=== PATIENT | female | born 1965 | race American Indian/Alaskan Native ===

== ENCOUNTER 2018-02-03 14:18 | Emergency (ER) | payer OTHER ==
--- NOTE | 2018-02-03 16:23 | Emergency Department Report ---
Chief Complaint: Abdominal Pain Stated Complaint: ABDOMINAL PAIN/BLOOD IN URINE Time Seen by Provider: 02/03/18 16:18 - HPI History of Present Illness: 52-year-old female presents to the emergency department with complaint of suprapubic abdominal pain and hematuria that has been going on for the past 4 days. Currently she does not have any pain but the bloody urine is returned. At first it was associated with some increased frequency and urgency. She denies any fever, nausea, vomiting. No past medical history. No primary care physician. She has not taken anything for her symptoms. - ROS Review of Systems: Positive for suprapubic abdominal pain, hematuria, increased urinary frequency Negative for fever, nausea, vomiting, back pain - Exam Vital Signs: Vital Signs 02/03/18 14:37 Temperature 98.1 F Pulse Rate 84 Respiratory 18 Rate Blood Pressure 158/76 O2 Sat by Pulse 96 Oximetry Physical Exam: Patient is awake and alert in no acute distress. Heart and lung sounds normal to auscultation. No gait abnormalities. MSE screening note: Focused history and physical exam performed. Due to findings the following was ordered: She will have some labs and a urinalysis. She can remain on the fast track side. ED Disposition for MSE Condition: Stable Instructions: Abdominal Pain (ED) Referrals: PRIMARY CARE [Primary Care Provider] - 3-5 Days
[2018-02-03 16:39] LABS: Bacteria,Urine 3+ /HPF (Negative); Bilirubin,Urine NEG (Negative); Blood,Urine LG (Negative); Color,Urine Red (Yellow); Mucus,Urine FEW /HPF; Urobilinogen,Urine < 2.0 mg/dL (<2.0)
[2018-02-03 16:43] LABS: Basophils # (Auto) 0.1 K/mm3 (0.0-0.1); Basophils % (Auto) 0.9 % (0.0-1.8); Eosinophils # (Auto) 0.1 K/mm3 (0.0-0.4); Eosinophils % (Auto) 1.6 % (0.0-4.3); Hematocrit 37.7 % (30.3-42.9); Hemoglobin 12.4 gm/dl (10.1-14.3); Lymphocytes # (Auto) 1.8 K/mm3 (1.2-5.4); Lymphocytes % (Auto) 23.7 % (13.4-35.0); Mean Corpuscular HGB Conc 33 % (30-34); Mean Corpuscular Hemoglobin 28 pg (28-32); Mean Corpuscular Volume 84 fl (79-97); Monocytes # (Auto) 0.7 K/mm3 (0.0-0.8); Monocytes % (Auto) 9.5 % (0.0-7.3); Platelet Count 254 K/mm3 (140-440); Red Blood Count 4.48 M/mm3 (3.65-5.03); Red Cell Distribution Width 13.5 % (13.2-15.2)
[2018-02-03 16:44] LABS: RBC,Urine > 182.0 /HPF (0.0-6.0)
[2018-02-03 17:10] LABS: Alanine Aminotransferase 17 units/L (7-56); Albumin 4.5 g/dL (3.9-5); BUN/Creatinine Ratio 19; Blood Urea Nitrogen 13 mg/dL (7-17); Calcium 9.5 mg/dL (8.4-10.2); Hemolysis Index 30
[2018-02-03] MEDS ORDERED: MACROBID PO ONE (18:33)
--- NOTE | 2018-02-03 18:48 | Emergency Department Report ---
HPI - General Chief Complaint: Abdominal Pain Time Seen by Provider: 02/03/18 16:18 - HPI HPI: 52-year-old female presents to the emergency department with complaint of suprapubic abdominal pain and hematuria that has been going on for the past 4 days. Currently she does not have any pain but the bloody urine is returned. At first it was associated with some increased frequency and urgency. She denies any fever, nausea, vomiting. No past medical history. No primary care physician. She has not taken anything for her symptoms. ED Past Medical Hx - Surgical History Additional Surgical History: Had 2 C sections - Social History Smoking Status: Never Smoker Substance Use Type: None - Medications Home Medications: Home Medications Medication Instructions Recorded Confirmed Last Taken Type Nitrofurantoin [place]/M-Cryst 100 mg PO BID #14 capsule 02/03/18 Unknown Rx [Macrobid CAP] ED Review of Systems ROS: Stated complaint: ABDOMINAL PAIN/BLOOD IN URINE Other details as noted in HPI Comment: All other systems reviewed and negative Constitutional: denies: chills, fever Eyes: denies: eye pain, eye discharge, vision change ENT: denies: ear pain, throat pain Respiratory: denies: cough, shortness of breath, wheezing Cardiovascular: denies: chest pain, palpitations Gastrointestinal: abdominal pain (suprapubic). denies: vomiting Genitourinary: hematuria. denies: discharge Musculoskeletal: denies: back pain, joint swelling, arthralgia Skin: denies: rash, lesions Neurological: denies: headache, weakness, paresthesias Physical Exam - Physical Exam Vital Signs: Vital Signs 02/03/18 14:37 Temperature 98.1 F Pulse Rate 84 Respiratory 18 Rate Blood Pressure 158/76 O2 Sat by Pulse 96 Oximetry Physical Exam: GENERAL: The patient is well-developed well-nourished. HENT: Normocephalic. Atraumatic. Patient has moist mucous membranes. EYES: Extraocular motions are intact. NECK: Supple. Trachea is midline. CHEST/LUNGS: Clear to auscultation. There is no respiratory distress noted. HEART/CARDIOVASCULAR: Regular. There is no tachycardia. There is no murmur. ABDOMEN: Abdomen is soft, nontender. Patient has normal bowel sounds. There is no abdominal distention. SKIN: Skin is warm and dry. NEURO: The patient is awake, alert, and oriented. The patient is cooperative. The patient has no focal neurologic deficits. The patient has normal speech. MUSCULOSKELETAL: There is no tenderness or deformity. There is no limitation range of motion. There is no evidence of acute injury. ED Course Vital Signs 02/03/18 14:37 Temperature 98.1 F Pulse Rate 84 Respiratory 18 Rate Blood Pressure 158/76 O2 Sat by Pulse 96 Oximetry ED Medical Decision Making - Lab Data Result diagrams: 02/03/18 16:24 02/03/18 16:24 - Medical Decision Making The patient comes in complaining of some intermittent suprapubic discomfort and some hematuria. She does not appear to have any significant dysuria. However her urinalysis does show a moderate to severe urinary tract infection with some hematuria. The CBC and metabolic panel are unremarkable. Vital signs stable and being afebrile. The patient will be treated with some antibiotics. She has been encouraged to follow-up with a primary care physician or at the very least to go to an urgent care or return to the emergency department and 5-7 days and make sure that the infection has cleared. She still continues to have hematuria at that time and she will need to most likely see a urologist to rule out malignancy or other etiology. She will return to the ER if any worsening of her symptoms or any acute distress. - Differential Diagnosis UTI, malignancy, interstitial cystitis, nephrolithiasis Critical Care Time: No Critical care attestation.: If time is entered above; I have spent that time in minutes in the direct care of this critically ill patient, excluding procedure time. ED Disposition Clinical Impression: Urinary tract infection Qualifiers: Urinary tract infection type: acute cystitis Hematuria presence: with hematuria Qualified Code(s): N30.01 - Acute cystitis with hematuria Hematuria Qualifiers: Hematuria type: unspecified type Qualified Code(s): R31.9 - Hematuria, unspecified Disposition: DC-01 TO HOME OR SELFCARE Is pt being admited?: No Condition: Stable Instructions: Urinary Tract Infection in Women (ED), Acute Hematuria (ED) Additional Instructions: Please follow up with a primary care physician in the next few days if possible. I have also given a referral for a local urologist, Dr. Seo, in case she needs to follow up regarding your urinary tract infection and blood in the urine. Please make sure you go to a primary care doctor, urgent care, or return to the emergency department to have your urine rechecked to make sure that the infection has cleared. Prescriptions: Nitrofurantoin [place]/M-Cryst [Macrobid CAP] 100 mg PO BID #14 capsule Referrals: PRIMARY CARE, [Primary Care Provider] - 3-5 Days LUCIA GRULLON MD [Staff Physician] - 3-5 Days JIMENA SEO MD [Staff Physician] - 3-5 Days Time of Disposition: 18:48
[2018-02-03 18:55] VITALS: BP 128/72
== END 2018-02-03 18:54 | disposition home or self-care (01) ==
LOC: ED 14:18
DX: N39.0 Urinary tract infection, site not specified (principal); R31.9 Hematuria, unspecified
CPT/HCPCS: 36415; 80053; 81001; 85025; 99283

== ENCOUNTER 2018-02-28 08:29 | Emergency (ER) | payer OTHER ==
[2018-02-28 08:47] VITALS: BP 192/97
[2018-02-28] MEDS ORDERED: MORPHINE IM ONE (10:41)
[2018-02-28] MEDS ORDERED: ZOFRAN IM ONE (10:41)
--- NOTE | 2018-02-28 10:46 | Emergency Department Report ---
ED Back Pain/Injury HPI - General Chief Complaint: Extremity Problem,Nontraumatic Stated Complaint: PAIN IN BOTTOM LEG Time Seen by Provider: 02/28/18 10:38 Source: patient Limitations: No Limitations - History of Present Illness Initial Comments: Patient is 52 years old female with no significant past medical history. Patient presented to the ER complaining of lower back pain radiated down to her left leg started last night. Patient stated that she was doing yard work last night. Patient denied any fever, weakness numbness or tingling sensation. No bowel or bladder incontinence. MD Complaint: back pain -: Last night Similar Symptoms Previously: No Place: home Radiation: none Severity: moderate Severity scale (0 -10): 6 Quality: stabbing Improves With: immobilization Worsens With: movement Context: bending Associated Symptoms: denies other symptoms. denies: confusion, weakness, chest pain, numbness, difficulty walking, cough, difficulty urinating, diaphoresis, incontinence, fever/chills, constipation, headaches, abdominal pain, loss of appetite, malaise, nausea/vomiting, rash, seizure, shortness of breath, syncope - Related Data Previous Rx's Medication Instructions Recorded Last Taken Type Nitrofurantoin [place]/M-Cryst 100 mg PO BID #14 capsule 02/03/18 Unknown Rx [Macrobid CAP] Allergies Allergy/AdvReac Type Severity Reaction Status Date / Time No Known Allergies Allergy Unverified 02/03/18 14:43 ED Review of Systems ROS: Stated complaint: PAIN IN BOTTOM LEG Other details as noted in HPI Comment: All other systems reviewed and negative Constitutional: denies: chills, fever Respiratory: denies: cough, orthopnea, shortness of breath, SOB with exertion Cardiovascular: denies: chest pain, palpitations, dyspnea on exertion Gastrointestinal: denies: abdominal pain, nausea, vomiting Musculoskeletal: back pain. denies: joint swelling, arthralgia, myalgia Neurological: denies: headache, weakness, numbness, paresthesias, confusion, abnormal gait ED Past Medical Hx - Surgical History Additional Surgical History: Had 2 C sections - Social History Smoking Status: Never Smoker Substance Use Type: Alcohol - Medications Home Medications: Home Medications Medication Instructions Recorded Confirmed Last Taken Type Nitrofurantoin [place]/M-Cryst 100 mg PO BID #14 capsule 02/03/18 Unknown Rx [Macrobid CAP] ED Physical Exam - General Limitations: No Limitations General appearance: alert, in no apparent distress - Head Head exam: Present: atraumatic, normocephalic, normal inspection - Eye Eye exam: Present: normal appearance - ENT ENT exam: Present: normal exam, normal orophraynx, mucous membranes moist - Neck Neck exam: Present: normal inspection, full ROM. Absent: tenderness, meningismus, lymphadenopathy, thyromegaly - Respiratory Respiratory exam: Present: normal lung sounds bilaterally. Absent: respiratory distress, wheezes, rales, rhonchi, accessory muscle use, decreased breath sounds , prolonged expiratory - Cardiovascular Cardiovascular Exam: Present: regular rate, normal rhythm, normal heart sounds - GI/Abdominal GI/Abdominal exam: Present: soft, normal bowel sounds. Absent: distended, tenderness, guarding, rebound, rigid, organomegaly, mass, bruit, pulsatile mass , hernia - Extremities Exam Extremities exam: Present: normal inspection, full ROM, normal capillary refill - Back Exam Back exam: Present: normal inspection, full ROM. Absent: tenderness, CVA tenderness (R), CVA tenderness (L), muscle spasm, paraspinal tenderness, vertebral tenderness, rash noted - Neurological Exam Neurological exam: Present: alert, oriented X3, CN II-XII intact, normal gait, reflexes normal - Skin Skin exam: Present: warm, intact, normal color ED Course Vital Signs 02/28/18 02/28/18 08:39 10:26 Temperature 98.0 F Pulse Rate 94 H Respiratory 20 18 Rate Blood Pressure 192/97 O2 Sat by Pulse 99 100 Oximetry Critical care attestation.: If time is entered above; I have spent that time in minutes in the direct care of this critically ill patient, excluding procedure time. ED Disposition Clinical Impression: Back pain, Sciatica Disposition: - TO HOME OR SELFCARE Is pt being admited?: No Condition: Stable Instructions: Lumbar Radiculopathy (ED), Sciatica (ED) Referrals: DUSTIN KEVIN MD [Staff Physician] - 3-5 Days
--- NOTE | 2018-02-28 12:11 | XRay Report ---
LUMBOSACRAL SPINE, 3 VIEWS: History: Back pain Findings: There is borderline bone mineralization. There is normal height and alignment of the vertebral bodies. Minimal degenerative disc disease and facet arthropathy are identified. No evidence for fracture, subluxation or bone lesion. Impression: Mild degenerative changes. No acute process.
== END 2018-02-28 12:38 | disposition home or self-care (01) ==
LOC: ED 08:29
DX: M54.40 Lumbago with sciatica, unspecified side (principal)
CPT/HCPCS: 72100; 96372; 99283; J2270; J2405